=== PATIENT | female | born 1935 | race Caucasian/White ===

== ENCOUNTER 2018-08-02 15:22 | Observation (INO) | payer MEDICARE ==
[2018-08-02 18:36] LABS: Troponin I Less than 0.010 ng/mL (< 0.028)
[2018-08-02] MEDS ORDERED: Acetaminophen 325 MG TAB PO PRN (18:54)
[2018-08-02] MEDS ORDERED: HumaLOG 300 UNITS/3 ML VIAL SC PRN ×2 (19:14)
[2018-08-02] MEDS ORDERED: Dextrose 5% in Water 1,000 ML IV PRN (19:14)
[2018-08-02] MEDS ORDERED: Dextrose 50% Abboject 50 ML SYRINGE SLOW IVP PRN (19:14)
[2018-08-02 19:34] VITALS: BMI 22.2
[2018-08-02] MEDS ORDERED: hydrALAZINE 20 MG/ML VIAL SLOW IVP PRN ×2 (20:07→20:14)
--- NOTE | 2018-08-02 20:13 | HP ---
This is RAIN Riojas dictating a report for Nikki Green MD. CHIEF COMPLAINT: Shortness of breath and fainting episode. HISTORY OF PRESENT ILLNESS: Ms. Camacho is a pleasant 83-year-old woman who presents today after experiencing a syncopal episode while sitting at hoahao[employer]. The patient states this was preceded by which she states was shortness of breath. She denies having any quick or shallow breathing. Denies having any tightness in her chest or chest pain. She states her breathing just felt slower than normal, but denies any other associated symptoms. According to her , she did become diaphoretic immediately before fainting. Since she was sat down at hoahaoism, she did not sustain any injuries including head injury. She fainted for a total of 45 seconds according to her . She did not experience any nausea or vomiting. No headaches or dizziness. She denies experiencing any palpitations. She states she had similar episode 5 or more years ago and states it happened exactly this way where she was sitting at hoahaoism as suddenly felt her breathing go "funny" and fainted. The patient states she was wearing a sweater and had been feeling warm. She denies having any fevers, chills, or sweats. She states she has been in her usual state of health recently. On occasion, she just does report noting her breathing go "funny" mainly when she sat down, though she is unable to pinpoint any real pattern. She denies having any orthopnea. Also denies any shortness of breath with exertion. She does not have any underlying asthma or other lung conditions. Reports being told she had an arrhythmia in the past, but that did not require any intervention or medications. The patient does have a background history of hypertension and dyslipidemia. She is on statin and for her blood pressure, is on metoprolol and losartan. The patient underwent an EKG and noted to be in sinus harjinder with a heart rate of 53. Otherwise unremarkable. The patient was initially seen in [place] and underwent laboratory studies with an unremarkable full blood count. D-dimer was negative at 0.35. Sodium was minimally low at 134. Potassium 4.6, chloride 99, anion gap 15, BUN 27, creatinine 1.05, GFR 50, glucose 101, calcium 9.7, total bilirubin 0.6, AST 17, ALT 14, alkaline phosphatase 38. Initial troponin negative. BNP 63.7. Albumin 4.3. Imaging includes a chest x-ray which was also unremarkable. The patient is noted to be hypertensive with a systolic blood pressure 170. No headaches or vision disturbances. She is due for her evening medications in the next 30 to 45 minutes. The patient is persistent in terms of being seen by a electro winning operator to both the ED physician and myself because she states she was instructed to come here after being evaluated in [place] to be seen and evaluated by a electro winning operator. I have explained to the patient that she will be admitted to the tele for continued monitoring and further investigations. At this time, the patient states she feels well in herself and is without complaints. REVIEW OF SYSTEMS: Apart from those mentioned above in HPI, all other review of systems are negative. PAST MEDICAL HISTORY: 1. Hypertension. 2. History of arrhythmia, the patient unable to elaborate. 3. History of diabetes type 2, the patient states she was taken off medications. The patient was previously on metformin. PAST SURGICAL HISTORY: 1. Breast biopsy. 2. Bladder surgery. 3. Appendectomy. 4. Hysterectomy. SOCIAL HISTORY: The patient denies any alcohol use, tobacco use, or illicit drug use. ALLERGIES: SULFA. CURRENT MEDICATIONS: 1. Aspirin. 2. Losartan. 3. Metoprolol. 4. Lovastatin. PROCEDURE PERFORMED: GENERAL: The patient appears well developed, well nourished, and is in no acute distress. VITAL SIGNS: Temperature 97.6, pulse 57, respirations 16, O2 saturation 100% on room air, blood pressure 180/64. HEENT: Normocephalic and atraumatic. Pupils are equal, round, and reactive to light. Sclerae are without icterus. Oropharynx is clear. NECK: Supple without lymphadenopathy. LUNGS: Clear to auscultation bilaterally without any wheezes, rales, or rhonchi. CARDIAC: Regular rate and rhythm. ABDOMEN: Soft, nontender, nondistended. Normoactive bowel sounds present. No guarding or rigidity. No renal angle tenderness. EXTREMITIES: Without any notable edema. No calf pain or tenderness. NEUROLOGIC: Alert and oriented x3. SKIN: Without rash or jaundice. IMPRESSION AND PLAN: Ms. Camacho is a very pleasant 83-year-old woman, being admitted for management of the followin. Syncope. The patient had a syncopal episode while sat upright at hoahaoism with brief loss of consciousness lasting 45 seconds according to family who witnessed this episode. Per the patient, preceded by unusual breathing, which she describes as slow. No other associated symptoms. She is being admitted for further investigations. We have requested an echo. The patient denies any dizziness. She states she had a similar episode more than 5 years ago. She denies any chest pain, but we will continue to trend troponins. D-dimer was negative. We will check orthostatic blood pressure. 2. Shortness of breath. The patient states she felt her breathing go slow prior to the syncopal episode. Denies having any cough or hemoptysis. Denies having any chest tightness. Has not been unwell in recent days and does not smoke. The patient with difficulty clearly describing in what way her breathing changed. She states she notices that her breathing goes "funny" on occasion, usually when she is resting. Does not notice any orthopnea. Again, D-dimer negative. Chest x-ray unremarkable. We will continue to monitor. 3. Hypertension. We will resume home medications once verified. We would like to add parameters to metoprolol given her sinus bradycardia seen on the EKG in the ER. 4. Bradycardia. The patient will be on tele. We will continue to monitor. Troponins trending. 5. History of diabetes mellitus type 2. The patient states she was taken off metformin. Poor historian and unable to identify why she was taken off, it seems that she did not do well with the medication. She was previously on metformin. The patient states is diet controlled now. We will monitor glucose. I have initiated an insulin sliding scale and will check her hemoglobin A1c. 6. Gastrointestinal prophylaxis. 7. DVT prophylaxis. The patient's case was discussed with Dr. Green who agrees with plan of care as described above. The patient has full code status. Her surrogate decision maker is her , Mr. Jignesh Camacho. Job ID: [id number]
[2018-08-02 21:09] LABS: Hemoglobin A1c 5.4 % (4.0-6.0)
[2018-08-02 21:26] LABS: Troponin I Less than 0.010 ng/mL (< 0.028)
[2018-08-02] MEDS ORDERED: Lovastatin 20 MG TAB PO SCH (22:00)
[2018-08-02] MEDS: Famotidine/PF 20 mg/2ml Vial SLOW IVP SCH (22:13)
[2018-08-03 05:28] LABS: #Eosinphils 0.2 thou/uL (0.0-0.7); #Lymphocytes 1.6 thou/uL (1.20-3.40); #Monocytes 0.6 thou/uL (0.11-0.59); #Neutrophils 2.3 thou/uL (1.40-6.50); %Basophils 0.7 % (0.0-1.0); %Eosinophils 3.9 % (0.0-10.0); %Lymphocytes 34.6 % (21.0-51.0); %Monocytes 11.8 % (0.0-10.0); Hemoglobin 11.2 g/dL (12.0-16.0); Mean Corpuscular HGB CONC 34.4 g/dL (32.0-36.0); Mean Corpuscular Hemoglobin 32.6 pg (27.0-31.0); Mean Corpuscular Volume 94.8 fL (78.0-98.0); Mean Platelet Volume 9.9 fL (7.4-10.4); Platelet Count 151 thou/uL (130-400); RBC Distribution Width 11.5 % (11.5-14.5); Red Blood Cell (RBC) Count 3.44 mill/uL (4.20-5.40); White Blood Cell (WBC) Count 4.7 thou/uL (4.8-10.8)
[2018-08-03 05:50] LABS: Anion Gap 12 mmol/L (10-20); BUN (Urea Nitrogen) 23 mg/dL (9.8-20.1); Calc. Creatinine Clearance 41 mL/min (70-130); Calcium 8.6 mg/dL (7.8-10.44); Carbon Dioxide 24 mmol/L (23-31); Chloride 97 mmol/L (98-107); Estimated GFR-MDRD 50; Glucose 84 mg/dL (83-110); Potassium 4.4 mmol/L (3.5-5.1); Sodium 129 mmol/L (136-145)
[2018-08-03] MEDS ORDERED: Aspirin 81 mg Enteric Coated Tablet PO SCH (09:00)
[2018-08-03] MEDS ORDERED: Losartan 25 MG TAB PO SCH ×2 (09:00→14:30)
[2018-08-03] MEDS ORDERED: Amlodipine 5 MG TAB PO SCH (09:50)
[2018-08-03] MEDS: Famotidine/PF 20 mg/2ml Vial SLOW IVP SCH (10:00)
--- NOTE | 2018-08-03 11:58 | ULT ---
BILATERAL CAROTID DUPLEX ULTRASOUND INCLUDING COLOR AND SPECTRAL DOPPLER IMAGING: HISTORY: Syncope. FINDINGS: Very minimal intimal thickening and plaque. PSV right ICA 89 cm/s, EDV 22 cm/s, ICA/CCA ratio 1.3. PSV left ICA 134 cm/s, EDV 22 cm/s, ICA/CCA ratio 1.0. IMPRESSION: Mild to moderate stenosis proximal left internal carotid artery. Minimal intimal thickening and plaq ue, evidence for carotid artery vascular disease. No hemodynamically significant stenosis. POS: OFF
[2018-08-03 15:52] VITALS: BP 159/72; TEMP 98
[2018-08-03] MEDS ORDERED: Lovastatin 20 MG TAB PO SCH (17:00)
--- NOTE | 2018-08-04 06:20 | DIS ---
DATE OF ADMISSION: 08/02/2018 DATE OF DISCHARGE: 08/03/2018 ALLERGIES: SULFA DRUGS. CHIEF COMPLAINT: Syncope. FINAL DIAGNOSES: 1. Syncope, unknown etiology at this time, vasovagal versus possible bradyarrhythmic/pause. 2. Sinus bradycardia with rate 50s to 60s this hospitalization in the setting of beta fady. 3. Hypertension. 4. Hyperlipidemia. 5. Diastolic dysfunction. 6. Mild mitral regurgitation. PROCEDURES PERFORMED: None. LABORATORY RESULTS: White blood cell count 4.7, hemoglobin 11.2, hematocrit 32.6, platelets 11.5. Sodium 134, potassium 4.4, BUN 23, creatinine 1.04. Hemoglobin A1c is 5.4. Troponin was negative x2. IMAGING RESULTS: Echocardiogram, ejection fraction visually estimated at 55% to 60%. E/A flow reversal suggestive of diastolic dysfunction. Mildly dilated left atrium. Mild MR and mild TR. Carotid Doppler study showed moderate stenosis, proximal left internal carotid, minimal intimal thickening and plaque. No hemodynamically significant stenosis. Chest x-ray, no acute pulmonary findings. CONSULTATIONS: Care discussed with Dr. Martinez. VITAL SIGNS: Blood pressure 159/72, O2 saturation 98% on room air, pulse 61, the patient is afebrile. HOSPITAL COURSE: Ms. Camacho is a pleasant 83-year-old woman with past medical history significant for hypertension and hyperlipidemia, on hypertensive therapy with metoprolol, who presented to the hospital after suffering a syncopal episode at [facility]. The patient was seated down when the event happened, and was witnessed by her . She denies any presyncopal symptoms including palpitations, dizziness, chest tightness or lightheadedness, she does say that she experiences sensation of breathing more slowly than normal. Per her , the episode lasted very briefly and she regained consciousness on her own. Interestingly, the patient states that she had a similar episode of syncope at [facility] about 5 years ago, at that time the patient states there was no underlying cause noted for her syncope. As outlined above, her imaging studies have been negative. Telemetry monitoring throughout her hospitalization has revealed sinus bradycardia in the 50s and 60s, however, she has had no pauses or symptomatic bradyarrhythmia. The patient states that she is very active, she walks multiple times per day around the square [place] town. She has had no symptoms of shortness of breath, dizziness, or chest pain during her walks. She has ambulated throughout the halls here during her stay without issue. Given her bradycardia and syncopal event, her metoprolol was stopped, her losartan was titrated up, and I started amlodipine. She has tolerated these medication changes well and her blood pressure has trended down. I did discuss care briefly with Dr. Martinez who arranged for outpatient telemetry monitoring and followup in his office. PHYSICAL EXAMINATION: GENERAL: The patient is a well-appearing elderly female, resting comfortably, in no acute distress. HEENT: Atraumatic and normocephalic. Eye movements intact. Mucous membranes are moist. NECK: Supple. No lymphadenopathy. No carotid bruits. No JVD. RESPIRATORY: Regular respiratory rate and pattern. Clear to auscultation bilaterally. No rhonchi or wheezes. CV: S1 and S2. Regular rhythm, mildly bradycardic. GI: Soft, nontender, normal bowel sounds. PERIPHERAL VASCULAR: No lower extremity pitting edema. Positive for varicosities, lower extremities are warm and well perfused. MUSCULOSKELETAL: No joint effusion or swelling. NEUROLOGIC: Awake and alert. Cranial nerves 2 through 12 intact. No focal deficits. SKIN: Warm and dry. CONDITION AT DISCHARGE: Stable. DISCHARGE MEDICATIONS: 1. Aspirin 81 mg daily. 2. Lovastatin 20 mg tablet p.o. q.p.m. 3. Amlodipine 5 mg tablet daily. 4. Losartan 50 mg tablet one tablet p.o. b.i.d. DISCHARGE DISPOSITION: Home. PLAN: As mentioned, the patient will be fitted for an outpatient desk monitor to assess for bradyarrhythmia or other arrhythmogenic cause for syncope. She will follow up in the office with Dr. Martinez in 2 to 3 weeks. She will monitor her blood pressure at home, and continue her daily activities as tolerated. She will also follow up with her primary care provider. Care discussed with Dr. Lopez who agrees with the above. Job ID: [id number]
[2018-08-04] MEDS ORDERED: Losartan 25 MG TAB PO SCH (09:00)
[2018-08-04] MEDS ORDERED: Amlodipine 5 MG TAB PO SCH (09:00)
--- NOTE | 2018-08-08 13:52 | EKG ---
Test Reason : Blood Pressure : / mmHG Vent. Rate : 053 BPM Atrial Rate : 053 BPM P-R Int : 140 ms QRS Dur : 082 ms QT Int : 428 ms P-R-T Axes : 049 004 063 degrees QTc Int : 401 ms Sinus bradycardia Cannot rule out Anterior infarct , age undetermined Abnormal ECG Confirmed by CHAY KINGSLEY DO ([id number]), editor magazine POONAM LUCAS ([id number]) on 08/08/2018 1:52:24 PM Referred By: Confirmed By:CHAY KINGSLEY DO
== END 2018-08-03 17:00 | disposition home or self-care (01) ==
LOC: ERS 15:22 → 2SW 18:31
PROVIDERS: ADMIT Family Medicine; ATTEND Family Medicine
DX: R55 Syncope and collapse (principal); R00.1 Bradycardia, unspecified; I10 Essential (primary) hypertension; I34.0 Nonrheumatic mitral (valve) insufficiency; E78.5 Hyperlipidemia, unspecified; E11.9 Type 2 diabetes mellitus without complications; Z90.49 Acquired absence of other specified parts of digestive tract; Z90.710 Acquired absence of both cervix and uterus; Z88.2 Allergy status to sulfonamides; Z79.82 Long term (current) use of aspirin; Z79.899 Other long term (current) drug therapy; Z98.890 Other specified postprocedural states
CPT/HCPCS: 80048; 82962 ×2; 83036; 84484; 85025; 93005; 93306; 93880; 96374; 96376; 97139; 99285; G0378 ×2; 36415; 36416; J0360; S0028

== ENCOUNTER 2018-08-11 16:07 | Inpatient (IN) | payer MEDICARE ==
[~2018-08-11 16:07] MED LIST: ISOVUE-370 76%-LOCM 1 ML ONE
[2018-08-11 17:13] LABS: #Eosinphils 0.1 thou/uL (0.0-0.7); #Lymphocytes 1.2 thou/uL (1.20-3.40); #Monocytes 0.6 thou/uL (0.11-0.59); #Neutrophils 5.2 thou/uL (1.40-6.50); %Basophils 0.5 % (0.0-1.0); %Eosinophils 0.9 % (0.0-10.0); %Monocytes 8.7 % (0.0-10.0); %Neutrophils 72.9 % (42.0-75.0); Hemoglobin 12.7 g/dL (12.0-16.0); Mean Corpuscular Hemoglobin 31.8 pg (27.0-31.0); Mean Corpuscular Volume 93.7 fL (78.0-98.0); Mean Platelet Volume 11.5 fL (7.4-10.4); Platelet Count 174 thou/uL (130-400); RBC Distribution Width 11.5 % (11.5-14.5); Red Blood Cell (RBC) Count 3.98 mill/uL (4.20-5.40); White Blood Cell (WBC) Count 7.1 thou/uL (4.8-10.8)
[2018-08-11 17:39] LABS: ALT (SGPT) 17 U/L (8-55); AST (SGOT) 17 U/L (5-34); Albumin 4.4 g/dL (3.4-4.8); Alkaline Phosphatase 46 U/L (40-150); Anion Gap 13 mmol/L (10-20); BUN (Urea Nitrogen) 32 mg/dL (9.8-20.1); Bilirubin, Total 0.7 mg/dL (0.2-1.2); CK (CPK) 62 U/L (29-168); Calc. Creatinine Clearance 0 mL/min (70-130); Calcium 9.6 mg/dL (7.8-10.44); Carbon Dioxide 25 mmol/L (23-31); Chloride 90 mmol/L (98-107); Estimated GFR-MDRD 51; Globulin 2.4 g/dL (2.4-3.5); Glucose 110 mg/dL (83-110); Potassium 4.5 mmol/L (3.5-5.1); Protein, Total 6.8 g/dL (6.0-8.3); Sodium 123 mmol/L (136-145)
--- NOTE | 2018-08-11 17:45 | RAD ---
TWO VIEWS OF THE CHEST: 08/11/18 COMPARISON: 08/02/18. HISTORY: Shortness of breath for one week. FINDINGS: Two views of the chest shows a normal sized cardiomediastinal silhouette. A generator projects over t he left chest wall. There is no evidence of consolidation, mass, or pleural effusion. Degenerative ch anges are seen in the spine. IMPRESSION: No evidence of acute cardiopulmonary disease. POS: [facility]
--- NOTE | 2018-08-11 19:12 | CT ---
EXAM: CT angiogram of the chest including 3-D rendering: HISTORY: Shortness of breath COMPARISON: None FINDINGS: Suboptimal pulmonary artery opacification particularly peripherally and in the lower chest as well as motion artifact considerably lowering the sensitivity of this study. No evidence for aortic aneurysm. No convincing CT evidence for proximal and mid pulmonary artery thrombosis. The more peripheral branc hes particularly in the mid and lower lobes are inadequately evaluated because of motion and bolus. Small patchy parenchymal density in the right middle lobe possibly subsegmental atelectasis or mild p neumonitis. Minimal pleural thickening with some pleural calcific changes. No evidence for mediastinal mass or adenopathy. No no evidence for pleural or pericardial effusion. Multiple circumscribed low-attenuation foci within the liver, statistically cysts. Small hiatal hernia. IMPRESSION: No convincing CT evidence for acute pulmonary embolism. Other findings as above.
[2018-08-11 19:48] LABS: Bilirubin Negative (Negative); Blood, Urine Negative (Negative); Clarity CLEAR (Clear); Glucose, Urine (Dipstick) Negative (Negative); Leukocyte Negative (Negative); Nitrite Positive (Negative); Protein, Urine (Dipstick) Negative (Neg-Trace); Specific Gravity, Urine 1.011 (1.002-1.036); Urobilinogen 0.2 mg/dL (0.2-1.0); pH, Urine 6.5 (5.0-9.0)
[2018-08-11 19:50] LABS: Bacteria/HPF 4+ HPF (None Seen); Hyaline Casts/LPF 0-3 HYALINE CAST LPF (0-3 Hyaline); Pathc Cast-AUWi Flag 0.13 (0-2.49); RBC/HPF 0-3 HPF (0-3); Squamous Epithelial None Seen HPF (0-3); WBC/HPF 0-3 HPF (0-3)
[2018-08-11 20:28] LABS: Troponin I 0.013 ng/mL (< 0.028)
[2018-08-11] MEDS ORDERED: Acetaminophen 325 MG TAB ONE (20:40)
[2018-08-11] MEDS ORDERED: Nitrofurantoin Monohyd/M-Cryst 100 MG CAP PO SCH (21:00)
[2018-08-11] MEDS ORDERED: Senokot S 8.6-50 MG TAB PO PRN (22:01)
[2018-08-11] MEDS ORDERED: Acetaminophen 325 MG TAB PO PRN (22:01)
[2018-08-11] MEDS ORDERED: Bisacodyl 5 MG TAB PO PRN (22:01)
[2018-08-11 22:23] LABS: Anion Gap 12 mmol/L (10-20); BUN (Urea Nitrogen) 26 mg/dL (9.8-20.1); Calc. Creatinine Clearance 0 mL/min (70-130); Carbon Dioxide 24 mmol/L (23-31); Chloride 95 mmol/L (98-107); Estimated GFR-MDRD 61; Glucose 113 mg/dL (83-110); Potassium 4.5 mmol/L (3.5-5.1); Sodium 126 mmol/L (136-145)
[2018-08-11 23:04] VITALS: BMI 22.1
[2018-08-11 23:45] LABS: Troponin I 0.015 ng/mL (< 0.028)
[2018-08-11] MEDS: cefTRIAXone\\ROCEPHIN 1 GM in Sodium Chloride 0.9% 100 ML IVPB SCH (23:47)
--- NOTE | 2018-08-12 04:45 | HP ---
CHIEF COMPLAINT: Shortness of breath. HISTORY OF PRESENT ILLNESS: Patient is an 83-year-old female who recently was discharged from the hospital for syncope and shortness of breath. Patient at that time also was found to have bradycardia and she was taken off her beta fady. She was supposed to follow up with Cardiology, which she did and had a loop recorder placed. Patient stated that since her discharge, she has been feeling on and off well and unwell. She states that today, especially she felt what she described as difficulty breathing. Patient stated that she had no syncopal episode. She had no chest pain or chest pressure. She just felt that she had to take some deep breaths. It is unclear and patient was unable to really explain to me her symptoms. Denies any nausea or vomiting. Patient states that she has recently for the past couple weeks been eating less and has been adding no salt to her diet. She states that due to her elevated blood pressure, she is trying to control it with no salt and low p.o. intake. However, she states that she has been drinking a lot of water. Today, patient stated that she felt very unwell, very weak, so she came into the hospital for further evaluation. PAST MEDICAL HISTORY: Her past medical history is as of the followin. She has had syncope. 2. She has had hypertension. 3. History of arrhythmias. 4. Diabetes. However, she is currently taken off medications. PAST SURGICAL HISTORY: She has a breast biopsy, bladder surgery, appendectomy, and hysterectomy. SOCIAL HISTORY: She denies any alcohol use, drug use, or smoking history. She is a full code. Lives with her . ALLERGIES: SHE IS ALLERGIC TO SULFA. MEDICATIONS: 1. Aspirin 81 mg daily. 2. Lovastatin 20 mg daily. 3. Losartan. REVIEW OF SYSTEMS: All negative, except for the ones mentioned above in the HPI. FAMILY HISTORY: No history of heart disease, cancer, or strokes. PHYSICAL EXAMINATION: VITAL SIGNS: Temperature of 98.1, 69, 16, 99% on room air, and 157/68. GENERAL: She is awake, alert, and oriented x3. Does not appear in distress. HEENT: Normocephalic and atraumatic. No lymphadenopathy noted. Pupils are equal and reactive to light. CV: S1 and S2 present. No murmurs, rubs, or gallops. LUNGS: Clear to auscultation. No rhonchi or wheezes noted. ABDOMEN: Soft and nontender. Bowel sounds are present x2. EXTREMITIES: No edema. Pedal pulses are present x2. NEUROVASCULAR: No focal deficits noted. SKIN: No cuts, lesions, or bruises noted. LABORATORY RESULTS: As of the following; WBCs of 7.1, hemoglobin of 12.7, hematocrit of 37.3, and her platelets of 174. Chemistry; initially sodium of 123, potassium of 4.5, BUN of 32, and creatinine 1.03. Her troponin x1 was negative. She also had a CTA of the chest, which did not indicate any acute abnormalities. No PE was noted. ASSESSMENT AND PLAN: 1. Hyponatremia. We will check a serum osmolality, urine osmolality, and urine sodium. Patient states that she has not been eating very much, has been drinking a lot of water, and also has not been eating enough salt, just need to restrict her oral fluid intake. Her hyponatremia could be secondary to hypotonic hyponatremia. Recheck BMP later on today. If her sodium does not improve, we will consult Nephrology. 2. Shortness of breath. Patient is unable to really explain to me what her symptoms are. I am not sure if she is having palpitations or if she is really short of breath. Patient states that she does not have a history of anxiety or does not have significant stressors in her life. She does have a loop recorder. Cardiology has been consulted. Her CT is negative for pulmonary embolism. It is unlikely what the patient's symptoms are. However, in this event, I will check a TSH to make sure there are no thyroid issues going on with this patient. 3. Hypertension. We will continue her home medications. 4. Deep venous thrombosis prophylaxis. We will put the patient on some subcu heparin or SCDs. Job ID: [id number]
[2018-08-12 07:06] LABS: #Eosinphils 0.1 thou/uL (0.0-0.7); #Lymphocytes 1.1 thou/uL (1.20-3.40); #Monocytes 0.5 thou/uL (0.11-0.59); #Neutrophils 2.5 thou/uL (1.40-6.50); %Basophils 0.3 % (0.0-1.0); %Eosinophils 2.3 % (0.0-10.0); %Lymphocytes 26.5 % (21.0-51.0); %Monocytes 11.8 % (0.0-10.0); Mean Corpuscular HGB CONC 34.7 g/dL (32.0-36.0); Mean Corpuscular Hemoglobin 32.4 pg (27.0-31.0); Mean Corpuscular Volume 93.4 fL (78.0-98.0); Mean Platelet Volume 9.4 fL (7.4-10.4); Platelet Count 204 thou/uL (130-400); RBC Distribution Width 11.7 % (11.5-14.5); Red Blood Cell (RBC) Count 3.71 mill/uL (4.20-5.40); White Blood Cell (WBC) Count 4.3 thou/uL (4.8-10.8)
[2018-08-12 07:28] LABS: Anion Gap 11 mmol/L (10-20); BUN (Urea Nitrogen) 23 mg/dL (9.8-20.1); Calc. Creatinine Clearance 45 mL/min (70-130); Calcium 8.9 mg/dL (7.8-10.44); Carbon Dioxide 24 mmol/L (23-31); Chloride 99 mmol/L (98-107); Estimated GFR-MDRD 57; Glucose 95 mg/dL (83-110); Potassium 4.3 mmol/L (3.5-5.1); Sodium 130 mmol/L (136-145)
[2018-08-12] MEDS: Aspirin 81 mg Enteric Coated Tablet PO SCH (08:25)
[2018-08-12] MEDS: Losartan 25 MG TAB PO SCH ×2 (08:29→19:57)
[2018-08-12] MEDS: Amlodipine 5 MG TAB PO SCH (08:29)
[2018-08-12] MEDS ORDERED: cloNIDine 0.1 MG TAB PO SCH (09:00)
[2018-08-12] MEDS ORDERED: Ondansetron ODT 4 MG TAB PO PRN (10:50)
[2018-08-12] MEDS ORDERED: Ondansetron PF 4 MG/2 ML Vial IVP PRN (10:50)
[2018-08-12] MEDS ORDERED: Calcium Carbonate 500 MG ChewTAB PO PRN (10:50)
[2018-08-12] MEDS: Lovastatin 20 MG TAB PO SCH (17:35)
--- NOTE | 2018-08-12 18:48 | PDOC.PN ---
- Subjective Encounter Start Date: 08/12/18 Encounter Start Time: 12:30 Patient seen and examined for Gen weakness. Feels better. No new complaints. No overnight events - Objective Resuscitation Status - Order Detail: 08/11/18 22:01 Resuscitation Status Routine Resuscitation Status: DNAR: NO Resuscitation Discussed with: per Palliative care discussion MAR Reviewed: Yes Vital Signs & Weight: Vital Signs (12 hours) Temp Pulse Resp BP Pulse Ox 08/12/18 15:45 98.2 F 63 16 154/86 H 98 08/12/18 11:31 98.2 F 62 25 H 136/63 96 08/12/18 07:41 97.8 F 67 17 182/75 H 96 08/12/18 07:40 96 Weight Weight 144 lb 3.2 oz I&O: 08/11/18 08/12/18 08/13/18 06:59 06:59 06:59 Intake Total 100 Output Total 425 Balance -325 Result Diagrams: 08/13/18 05:21 08/13/18 05:21 Additional Labs: Accuchecks 08/12/18 07:07 POC Glucose 106 EKG Reviewed by me: Yes (Tele SB) Phys Exam - Physical Examination Constitutional: NAD Respiratory: no wheezing, no rhonchi Cardiovascular: RRR, no rub Gastrointestinal: soft, non-tender, positive bowel sounds Musculoskeletal: no edema Neurological: non-focal, moves all 4 limbs Dx/Plan - Plan DVT proph w/SCDs IMPRESSION: Gen weakness Dyspnea Hypotonic Hyponatremia Prerenal azotemia UTI Recent admission for Syncope (has Loop recorder) HTN DM2 - diet controlled. HLD Chronic diastolic HF CKD 2 PLAN: Sodium level improving Await Cardiology input Cont Losartan/Amlodipine/Clonidine Check Orthostatic vitals AM labs Ambulate Review of Systems - Review of Systems Respiratory: negative: Cough, Dry, Shortness of Breath, Hemoptysis, SOB with Excertion, Pleuritic Pain, Sputum, Wheezing Cardiovascular: negative: chest pain, palpitations, orthopnea, paroxysmal nocturnal dyspnea, edema, light headedness, other Gastrointestinal: negative: Nausea, Vomiting, Abdominal Pain, Diarrhea, Constipation, Melena, Hematochezia, Other - Medications/Allergies Allergies/Adverse Reactions: Allergies Allergy/AdvReac Type Severity Reaction Status Date / Time Sulfa (Sulfonamide Allergy Hives Verified 08/11/18 22:54 Antibiotics) Medications: Current Medications Acetaminophen (Tylenol) 650 mg PO Q4H PRN PRN Reason: Headache/Fever/Mild Pain (1-3) Last Admin: 08/12/18 08:25 Dose: 650 mg Amlodipine Besylate (Norvasc) 5 mg PO DAILY [facility] Last Admin: 08/12/18 08:29 Dose: Not Given Aspirin (Ecotrin) 81 mg PO DAILY [facility] Last Admin: 08/12/18 08:25 Dose: 81 mg Bisacodyl (Dulcolax) 10 mg PO DAILYPRN PRN PRN Reason: Constipation Calcium Carbonate (Tums) 1,000 mg PO Q4H PRN PRN Reason: Heartburn or Indigestion Clonidine (Catapres) 0.1 mg PO BID [facility] Cyanocobalamin (Vitamin B-12) 1,000 mcg PO DAILY [facility] Enoxaparin Sodium (Lovenox) 40 mg SC 2100 [facility] Folic Acid (Folvite) 1 mg PO DAILY [facility] Ceftriaxone Sodium 1 gm/ (Sodium Chloride) 100 mls @ 200 mls/hr IVPB Q24HR [facility] Last Admin: 08/11/18 23:47 Dose: 100 mls Losartan Potassium (Cozaar) 50 mg PO BID [facility] Last Admin: 08/12/18 08:29 Dose: Not Given Lovastatin (Mevacor) [address] [facility]PM-[facility] [place] Last Admin: 08/12/18 17:35 Dose: 20 mg Multivitamins (Theragran) 1 tab PO DAILY [facility] Ondansetron HCl (Zofran Odt) 4 mg PO Q6H PRN PRN Reason: Nausea/Vomiting Ondansetron HCl (Zofran) 4 mg IVP Q6H PRN PRN Reason: Nausea/Vomiting Senna/Docusate Sodium (Senokot S) 2 tab PO BID PRN PRN Reason: Constipation Sodium Chloride (Flush - Normal Saline) 10 ml IVF PRN PRN PRN Reason: Saline Flush
[2018-08-12] MEDS: cloNIDine 0.1 MG TAB PO SCH (19:52)
[2018-08-12] MEDS ORDERED: Enoxaparin Sodium 40 MG/0.4 ML SYRINGE SC SCH (21:00)
[2018-08-12] MEDS: cefTRIAXone\\ROCEPHIN 1 GM in Sodium Chloride 0.9% 100 ML IVPB SCH (23:01)
[2018-08-13 05:57] LABS: #Basophils 0.1 thou/uL (0.0-0.2); #Eosinphils 0.1 thou/uL (0.0-0.7); #Lymphocytes 1.2 thou/uL (1.20-3.40); #Monocytes 0.5 thou/uL (0.11-0.59); #Neutrophils 2.6 thou/uL (1.40-6.50); %Basophils 2.2 % (0.0-1.0); %Eosinophils 3.2 % (0.0-10.0); %Lymphocytes 26.9 % (21.0-51.0); %Monocytes 10.9 % (0.0-10.0); %Neutrophils 56.8 % (42.0-75.0); Hemoglobin 11.5 g/dL (12.0-16.0); Mean Corpuscular HGB CONC 34.2 g/dL (32.0-36.0); Mean Corpuscular Hemoglobin 32.2 pg (27.0-31.0); Mean Corpuscular Volume 94.3 fL (78.0-98.0); Mean Platelet Volume 10.5 fL (7.4-10.4); Platelet Count 158 thou/uL (130-400); RBC Distribution Width 11.6 % (11.5-14.5); Red Blood Cell (RBC) Count 3.56 mill/uL (4.20-5.40); White Blood Cell (WBC) Count 4.5 thou/uL (4.8-10.8)
[2018-08-13 06:09] LABS: ALT (SGPT) 10 U/L (8-55); AST (SGOT) 12 U/L (5-34); Albumin 3.5 g/dL (3.4-4.8); Alkaline Phosphatase 36 U/L (40-150); Anion Gap 11 mmol/L (10-20); BUN (Urea Nitrogen) 17 mg/dL (9.8-20.1); Bilirubin, Total 0.4 mg/dL (0.2-1.2); Calc. Creatinine Clearance 48 mL/min (70-130); Calcium 8.7 mg/dL (7.8-10.44); Carbon Dioxide 23 mmol/L (23-31); Chloride 100 mmol/L (98-107); Estimated GFR-MDRD 61; Globulin 2.2 g/dL (2.4-3.5); Glucose 101 mg/dL (83-110); Magnesium 2.2 mg/dL (1.6-2.6); Phosphorus 3.1 mg/dL (2.3-4.7); Potassium 4.3 mmol/L (3.5-5.1); Protein, Total 5.7 g/dL (6.0-8.3); Sodium 130 mmol/L (136-145)
[2018-08-13] MEDS: cloNIDine 0.1 MG TAB PO SCH ×2 (09:24→20:18)
[2018-08-13] MEDS: Losartan 25 MG TAB PO SCH ×2 (09:25→20:19)
[2018-08-13] MEDS: Amlodipine 5 MG TAB PO SCH (09:26)
[2018-08-13] MEDS: Cyanocobalamin (Vitamin B-12) 1,000 MCG TAB PO SCH (09:26)
[2018-08-13] MEDS: Folic Acid 1 MG TAB PO SCH (09:27)
[2018-08-13] MEDS: Aspirin 81 mg Enteric Coated Tablet PO SCH (09:27)
[2018-08-13] MEDS: Multivit, Therapeutic 1 TAB PO SCH (09:27)
[2018-08-13] MEDS ORDERED: Polyethylene Glycol 3350 17 GM Packet PO PRN (13:54)
[2018-08-13] MEDS ORDERED: Eucerin (Mineral Oil/Petrolatum,White) 30 gm Jar TOP PRN (13:54)
[2018-08-13] MEDS ORDERED: cloNIDine 0.1 MG TAB PO PRN (17:42)
[2018-08-13] MEDS: Lovastatin 20 MG TAB PO SCH (17:45)
--- NOTE | 2018-08-13 18:09 | PDOC.PN ---
- Subjective Encounter Start Date: 08/13/18 Encounter Start Time: 14:00 Patient seen and examined for Gen weakness. Feels better. No new complaints. No overnight events - Objective Resuscitation Status - Order Detail: 08/11/18 22:01 Resuscitation Status Routine Resuscitation Status: DNAR: NO Resuscitation Discussed with: per Palliative care discussion MAR Reviewed: Yes Vital Signs & Weight: Vital Signs (12 hours) Temp Pulse Resp BP BP BP Pulse Ox 08/13/18 17:48 176/77 H 08/13/18 16:00 97.9 F 63 14 194/77 H 98 08/13/18 11:25 97.4 F L 61 16 144/65 H 96 08/13/18 07:56 98.2 F 61 17 196/77 H 99 08/13/18 07:45 99 Weight Weight 142 lb 12.8 oz I&O: 08/12/18 08/13/18 08/14/18 06:59 06:59 06:59 Intake Total 100 150 Output Total 425 1500 Balance -325 -1350 Result Diagrams: 08/13/18 05:21 08/13/18 05:21 Additional Labs: Accuchecks 08/13/18 11:42 POC Glucose 123 H EKG Reviewed by me: Yes (Tele Sr) Phys Exam - Physical Examination Constitutional: NAD Respiratory: no wheezing, no rhonchi Cardiovascular: RRR, no rub Gastrointestinal: soft, non-tender, positive bowel sounds Musculoskeletal: no edema Neurological: moves all 4 limbs Dx/Plan - Plan DVT proph w/SCDs IMPRESSION: Gen weakness Dyspnea Hypotonic Hyponatremia - Na 130 Prerenal azotemia UTI - E coli Recent admission for Syncope (has Loop recorder). HTN DM2 - diet controlled. HLD Chronic diastolic HF CKD 2 PLAN: Await Cardiology input Cont current meds - Losartan/Amlodipine/Clonidine Orthostatic vitals noted AM labs Ambulate Review of Systems - Review of Systems Respiratory: negative: Cough, Dry, Shortness of Breath, Hemoptysis, SOB with Excertion, Pleuritic Pain, Sputum, Wheezing Cardiovascular: negative: chest pain, palpitations, orthopnea, paroxysmal nocturnal dyspnea, edema, light headedness, other - Medications/Allergies Allergies/Adverse Reactions: Allergies Allergy/AdvReac Type Severity Reaction Status Date / Time Sulfa (Sulfonamide Allergy Hives Verified 08/11/18 22:54 Antibiotics) Medications: Current Medications Acetaminophen (Tylenol) 650 mg PO Q4H PRN PRN Reason: Headache/Fever/Mild Pain (1-3) Last Admin: 08/12/18 08:25 Dose: 650 mg Amlodipine Besylate (Norvasc) 5 mg PO DAILY [facility] Last Admin: 08/13/18 09:26 Dose: 5 mg Aspirin (Ecotrin) 81 mg PO DAILY [facility] Last Admin: 08/13/18 09:27 Dose: 81 mg Bisacodyl (Dulcolax) 10 mg PO DAILYPRN PRN PRN Reason: Constipation Calcium Carbonate (Tums) 1,000 mg PO Q4H PRN PRN Reason: Heartburn or Indigestion Cefdinir (Omnicef) 300 mg PO BID [facility] Clonidine (Catapres) 0.1 mg PO BID [facility] Last Admin: 08/13/18 09:24 Dose: 0.1 mg Clonidine (Catapres) 0.1 mg PO Q6H PRN PRN Reason: Blood Pressure Cyanocobalamin (Vitamin B-12) 1,000 mcg PO DAILY [facility] Last Admin: 08/13/18 09:26 Dose: 1,000 mcg Folic Acid (Folvite) 1 mg PO DAILY [facility] Last Admin: 08/13/18 09:27 Dose: 1 mg Losartan Potassium (Cozaar) 50 mg PO BID [facility] Last Admin: 08/13/18 09:25 Dose: 50 mg Lovastatin (Mevacor) 20 mg PO QPM[facility] Last Admin: 08/13/18 17:45 Dose: 20 mg Mineral Oil/White Petrolatum (Eucerin Cream) 0 gm TOP BIDPRN PRN PRN Reason: Dry Skin Multivitamins (Theragran) 1 tab PO DAILY [facility] Last Admin: 08/13/18 09:27 Dose: 1 tab Ondansetron HCl (Zofran Odt) 4 mg PO Q6H PRN PRN Reason: Nausea/Vomiting Ondansetron HCl (Zofran) 4 mg IVP Q6H PRN PRN Reason: Nausea/Vomiting Polyethylene Glycol (Miralax) 17 gm PO DAILY PRN PRN Reason: Constipation Senna/Docusate Sodium (Senokot S) 2 tab PO BID PRN PRN Reason: Constipation Sodium Chloride (Flush - Normal Saline) 10 ml IVF PRN PRN PRN Reason: Saline Flush
[2018-08-13] MEDS: Cefdinir 300 MG CAP PO SCH (20:18)
--- NOTE | 2018-08-13 21:50 | CON ---
DATE OF CONSULTATION: HISTORY: Nimco Camacho is an 83-year-old white female who I did evaluate in the office in 2017 for venous disease and she was placed in compression stockings. She recently was admitted on August 02 with a syncopal episode at [facility]. Apparently, she was out for several seconds. She was somewhat bradycardic during that admission and metoprolol 25 mg b.i.d. was discontinued. She was monitored and did not have any significant arrhythmias. She was sent home with a home monitor, which was evaluated today. There was no significant bradycardia. There were short episodes of supraventricular tachycardia that would last for 2 to 3 seconds, that apparently were asymptomatic. She was discharged on amlodipine 5 mg daily and losartan 50 b.i.d. for her hypertension. She apparently has not been eating much at home, but has been drinking a lot of water. She has had episodes of shortness of breath that apparently occur at rest. She is very vague in regard to these episodes and how long they last. She again came back to the hospital complaining of shortness of breath. PAST MEDICAL HISTORY: Hypertension; hypercholesterolemia; recent episodes of syncope; history of diabetes, diet controlled at the present time. PAST SURGICAL HISTORY: Bladder surgery, appendectomy, hysterectomy, breast biopsy. MEDICATIONS: 1. Losartan 50 mg b.i.d. 2. Amlodipine 5 mg q.a.m. 3. Lovastatin 20 mg q.p.m. 4. Aspirin 81 daily. ALLERGIES: SULFA. SOCIAL HISTORY: She does not smoke or drink. She lives with her . REVIEW OF SYSTEMS: A 10-point review of systems is otherwise unremarkable. PHYSICAL EXAMINATION: VITAL SIGNS: Blood pressure 194/77, pulse of 63. HEENT: PERRL. NECK: Supple. CHEST: Clear. CARDIAC: S1 and S2 normal without any S3, S4, or murmurs. Carotid upstrokes normal without bruits. ABDOMEN: Normal bowel sounds without tenderness or organomegaly. EXTREMITIES: Revealed no clubbing, cyanosis, or edema. NEUROLOGIC: Grossly intact. SKIN: Warm and dry. LABORATORY DATA: EKG revealed normal sinus rhythm with possible left atrial enlargement. Echocardiogram during last admission revealed ejection fraction of 55% to 60% with evidence for diastolic dysfunction, left atrial enlargement, mild mitral regurgitation, and mild tricuspid regurgitation. Hemoglobin 11.5, hematocrit 33.6, white count 4500, platelets 158,000. Sodium 130, potassium 4.3, chloride 100, carbon dioxide 23, BUN 17, creatinine 0.88. Cardiac enzymes were unremarkable. Her admission sodium was 123. IMPRESSION: 1. Very difficult historian with complaints of shortness of breath at rest. 2. Hyponatremia. 3. Episode of syncope without significant arrhythmias seen on a week long monitoring at home. 4. Hypertension, difficult to control. 5. Hypercholesterolemia. PLAN: Blood pressure continued to be closely monitored. Amlodipine may need to be further increased. With her multiple cardiac risk factors as well as unusual symptoms of shortness of breath, this may possibly be an anginal equivalent and she will undergo Lexiscan Cardiolite testing in the morning. I will continue to follow the patient with you. Job ID: [id number] FINESSE
[2018-08-14 05:42] LABS: #Basophils 0.1 thou/uL (0.0-0.2); #Eosinphils 0.2 thou/uL (0.0-0.7); #Lymphocytes 1.3 thou/uL (1.20-3.40); #Monocytes 0.7 thou/uL (0.11-0.59); #Neutrophils 2.6 thou/uL (1.40-6.50); %Eosinophils 4.1 % (0.0-10.0); %Lymphocytes 26.5 % (21.0-51.0); %Monocytes 14.2 % (0.0-10.0); %Neutrophils 54.2 % (42.0-75.0); Hemoglobin 11.9 g/dL (12.0-16.0); Mean Corpuscular HGB CONC 34.4 g/dL (32.0-36.0); Mean Corpuscular Hemoglobin 32.9 pg (27.0-31.0); Mean Corpuscular Volume 95.5 fL (78.0-98.0); Mean Platelet Volume 11.3 fL (7.4-10.4); Platelet Count 155 thou/uL (130-400); RBC Distribution Width 11.6 % (11.5-14.5); Red Blood Cell (RBC) Count 3.61 mill/uL (4.20-5.40); White Blood Cell (WBC) Count 4.8 thou/uL (4.8-10.8)
[2018-08-14 05:50] LABS: Anion Gap 12 mmol/L (10-20); BUN (Urea Nitrogen) 14 mg/dL (9.8-20.1); Calc. Creatinine Clearance 48 mL/min (70-130); Carbon Dioxide 24 mmol/L (23-31); Chloride 99 mmol/L (98-107); Estimated GFR-MDRD 62; Glucose 109 mg/dL (83-110); Potassium 4.6 mmol/L (3.5-5.1); Sodium 130 mmol/L (136-145)
[2018-08-14] MEDS ORDERED: Regadenoson 0.4 MG/5 ML SYRINGE ONE (09:39)
[2018-08-14] MEDS: Amlodipine 5 MG TAB PO SCH (12:03)
[2018-08-14] MEDS: Aspirin 81 mg Enteric Coated Tablet PO SCH (12:03)
[2018-08-14] MEDS: Cefdinir 300 MG CAP PO SCH (12:03)
[2018-08-14] MEDS: Cyanocobalamin (Vitamin B-12) 1,000 MCG TAB PO SCH (12:04)
[2018-08-14] MEDS: Folic Acid 1 MG TAB PO SCH (12:05)
[2018-08-14] MEDS: Losartan 25 MG TAB PO SCH (12:05)
[2018-08-14] MEDS: Multivit, Therapeutic 1 TAB PO SCH (12:05)
[2018-08-14] MEDS: cloNIDine 0.1 MG TAB PO SCH (12:05)
--- NOTE | 2018-08-14 12:14 | NM ---
EXAM: Nuclear medicine cardiac SPECT with EF and wall motion: HISTORY: Shortness of breath, hypertension, diabetes, syncope Protocol: Exam was performed using Lexiscan protocol Patient was injected with 28.1 mCi technetium 99m sestamibi intravenously for stress images and 9.3 m Ci technetium 99m sestamibi intravenously for resting images Multiple SPECT images are performed in the short axis, vertical long axis, and horizontal long axis. FINDINGS: No scan evidence for infarct or ischemia. TID:0.74 LHR:0.27 EDV:46 mL EF:94% Wall motion:Normal IMPRESSION: Unremarkable cardiac SPECT with EF and wall motion no evidence for ischemia.
[2018-08-14] MEDS ORDERED: hydrALAZINE 25 MG TAB PO SCH ×2 (14:30→21:00)
[2018-08-14 15:43] VITALS: BP 164/76; TEMP 98.1
[2018-08-14] MEDS: Lovastatin 20 MG TAB PO SCH (16:43)
--- NOTE | 2018-08-15 04:55 | DIS ---
DATE OF ADMISSION: 08/11/2018 DATE OF DISCHARGE: 08/14/2018 ADMITTING PHYSICIAN: Sasha Nguyen MD. PRIMARY CARE PHYSICIAN: Gail Manriquez NP. PRIMARY LOCKER ATTENDANT: Maurice Martinez MD. ADMITTING DIAGNOSES: 1. Hyponatremia. 2. Shortness of breath. 3. Essential hypertension. DISCHARGE DIAGNOSES: 1. Generalized weakness: Resolved. 2. Dyspnea: Resolved. 3. Chronic hyponatremia. 4. Prerenal azotemia: Resolved. 5. Essential hypertension. 6. Escherichia coli, acute urinary tract infection: The patient needs to complete 2 more days of Omnicef. 7. Diet controlled diabetes mellitus type 2. 8. Chronic kidney disease, stage 2. 9. Chronic diastolic heart failure: Compensated. 10. Chronic dyslipidemia. CONSULTS: Cardiology. PROCEDURES: Nuclear cardiac stress test. HOSPITAL COURSE: In essence, this is an 83-year-old female with history of hypertension, diet controlled diabetes mellitus type 2, chronic diastolic heart failure, chronic kidney disease stage 2, who came to the emergency for nonspecific complaints except for feeling unwell after discharge from previous admission to the hospital. She was admitted with diagnoses above that were treated adequately. Cardiology was consulted. The patient underwent stress test with normal results. She was evaluated by physical therapy, showing no significant weakness. Urinalysis was abnormal and she grew E. coli in the urine cultures. She was treated with Omnicef while in the hospital. She needs to complete 2 more days of oral antibiotics. She has labile blood pressure for which we increased her amlodipine dose to 10 mg daily and gave her prescription for p.r.n. clonidine. She has a loop recorder at home from previous admission for syncope that she was encouraged to wear and follow with her primary watch manufacturing supervisor in a week. She is stable for discharge. PHYSICAL EXAMINATION: VITAL SIGNS: Blood pressure 188/77 (will be corrected before discharge), pulse 84, respirations 16, oxygen saturation 100% on room air, and temperature 97.6 Fahrenheit. GENERAL: She appears in no distress. She is alert, awake, and oriented x3. HEAD AND NECK: Pupils are reactive to light. Extraocular muscles are intact. Mucous membranes are moist. Neck is supple. CARDIOVASCULAR: Rhythm and rate are regular. No audible murmurs, rubs, or gallops. PULMONARY: Clear to auscultation bilaterally. No wheezes, rhonchi, or crackles. ABDOMEN: Soft, nontender, and nondistended. Positive bowel sounds. EXTREMITIES: No palpable edema. Pulses are symmetric. Range of motion is intact. SKIN: Fair skin. Good moist for her age. NEUROLOGIC: Cranial nerves 2 through 12 are grossly intact. Deep tendon reflexes are normoreflexic. Muscle tone is normal. Muscle strength is 5/5. DIAGNOSTIC DATA: Laboratory abnormalities: Hemoglobin is 12, hematocrit 34.5. Sodium 130. EKG is reviewed. Stress test report is reviewed. Other imaging studies are reviewed as well. DISCHARGE DISPOSITION: Home with self care. DISCHARGE CONDITION: Stable. DISCHARGE DIET: Diabetic and cardiac diet as tolerated. DISCHARGE ACTIVITY: Increase activity as tolerated and avoid falls. DISCHARGE MEDICATIONS: See medical reconciliation for details. DISCHARGE FOLLOWUP: Follow up with primary care physician and primary watch manufacturing supervisor in 1 week. DISCHARGE INSTRUCTIONS: The patient was instructed to return to the emergency department if symptoms are worsen. To take the medications as directed. Not to miss any appointments. TIME OF DISCHARGE AND PLANNIN minutes. Job ID: [id number]
[2018-08-15] MEDS ORDERED: hydrALAZINE 25 MG TAB PO SCH (09:00)
[2018-08-15] MEDS ORDERED: Amlodipine 10 MG TAB PO SCH (09:00)
== END 2018-08-14 17:17 | disposition home or self-care (01) | DRG 641 ==
LOC: ERS 16:07 → 2NO 19:10
PROVIDERS: ADMIT Emergency Medicine; ATTEND Emergency Medicine
DX: E87.1 Hypo-osmolality and hyponatremia (principal); I13.0 Hypertensive heart and chronic kidney disease with heart failure and stage 1 through stage 4 chronic kidney disease, or unspecified chronic kidney disease; I50.32 Chronic diastolic (congestive) heart failure; N39.0 Urinary tract infection, site not specified; E11.22 Type 2 diabetes mellitus with diabetic chronic kidney disease; N18.2 Chronic kidney disease, stage 2 (mild); E78.00 Pure hypercholesterolemia, unspecified; Z66 Do not resuscitate; B96.20 Unspecified Escherichia coli [E. coli] as the cause of diseases classified elsewhere
CPT/HCPCS: 36415; 36416; 71046; 71275; 78452; 80048; 80053; 81003; 81015; 82550; 83735; 83880; 83930; 83935; 84100; 84300; 84443; 84484; 85025; 87077; 87086; 87186; 93005; 93017; 94760; 96360; 96361; A9500; J0696; J1650; J2785; J3490; Q9966